=== PATIENT | male | born 1985 | race American Indian/Alaskan Native ===

== ENCOUNTER 2017-09-07 22:03 | Emergency (ER) | payer SELFPAY ==
[2017-09-07 22:12] VITALS: BP 120/79; PULSE 84; RESP 16; TEMP 98; O2SAT 100
--- NOTE | 2017-09-07 22:51 | C.PDOC ---
History Of Present Illness 32 yo male come in for evaluation of Left lower toothache developed since yesterday. As per pt, had left lower premolar tooth extraction yesterday and since then developed pain with chewing. Pt sts, " I known something is wrong after that procedure". Pt admits, went back to dentist and also was evaluated at [facility] " and was told nothing is wrong". Pt admits, takes antibiotic now given by dentist after the extraction. Otherwise, pt admits, able to eat and swallow without difficulty. Pt denies fever, chills, drooling, dysphagia, dysphea, trismus, wound discharge/bleeding, CP< SOB, cough or any other active complaints. Ambulate to Ed for evaluation, not in any apparent distress. Time Seen by Provider: 09/07/17 22:26 Chief Complaint (Nursing): Dental Pain History Per: Patient Past Medical History Reviewed: Historical Data, Nursing Documentation, Vital Signs Vital Signs: Last Vital Signs Temp 98 F 09/07/17 22:07 Pulse 84 09/07/17 22:07 Resp 16 09/07/17 22:07 BP 120/79 09/07/17 22:07 Pulse Ox 100 09/07/17 23:01 - Medical History PMH: Chronic Pain Other PMH: C-spine DJD, " fusion" Family History: States: No Known Family Hx - Social History Hx Alcohol Use: Yes Hx Substance Use: No - Immunization History Hx Tetanus Toxoid Vaccination: No Hx Influenza Vaccination: No Hx Pneumococcal Vaccination: No Review Of Systems Except As Marked, All Systems Reviewed And Found Negative. Constitutional: Negative for: Fever, Chills ENT: Positive for: Mouth Pain. Negative for: Ear Discharge, Nose Discharge, Throat Pain, Throat Swelling Cardiovascular: Negative for: Chest Pain Respiratory: Negative for: Cough, Shortness of Breath, Wheezing Neurological: Negative for: Weakness, Numbness, Altered Mental Status, Headache , Dizziness Physical Exam - Physical Exam Appears: Well, Non-toxic, No Acute Distress Skin: Normal Color, Warm, No Rash Head: Normacephalic Eye(s): bilateral: PERRL Ear(s): Bilateral: Normal Nose: No Flaring, No Discharge Oral Mucosa: Moist Tongue: Normal Appearing Lips: Normal Appearing Teeth: Tender To Palpation (Left lower 2nd premolar open tooth lacune closed with suture#1, mild edema, no erythema, no discahrges, no evidence of abscess.) Throat: No Erythema, No Exudate, No Drooling, Other (uvula midline, no edema.) Neck: Supple Respiratory: No Decreased Breath Sounds, No Accessory Muscle Use, No Rales, No Rhonchi, No Stridor, No Wheezing Extremity: Normal ROM, No Deformity, No Swelling Neurological/Psych: Oriented x3, Normal Speech ED Course And Treatment O2 Sat by Pulse Oximetry: 100 Pulse Ox Interpretation: Normal Progress Note: On re-eavluation, pt is afebrile, hemodynamicaly stable. Non- toxic. Tolerate Po well in ED. No drooling, trismus or dyspnea noted. PulsEOx 100% RA. Neck: Supple. ENT: exam c/w s/p left lower tooth extraction, no edema, no evidence of tooth abscess, no droolinr or trismus. Lungs: CTA B/L , BS equal B/L. Pt advised on course of ds. ref. to F/u with dentist in 2-3 days for re-eval. return to ED if any worsening or new changes. Disposition Counseled Patient/Family Regarding: Diagnosis, Need For Followup, Rx Given - Disposition Referrals: [facility] [Provider Group] [facility] [Provider Group] Disposition: HOME/ ROUTINE Disposition Time: 22:49 Condition: STABLE Additional Instructions: WARM SALTY WATER TOOTH BATHS 2-3 TIMES DAILY AVOID SOLID FOOD FOR 3-4 DAYS, LIQUID DIET FOR 1 WEEK DENTAL HYGIENE TAKE PAIN MEDICATION NEED CONTINUE ANTIBIOTIC PRESCRIBED BY DENTIST FOLLOW UP WITH DENTIST IN 2-3 DAYS FOR RE-EVALUATION AND INTRAORAL STITCHES REMOVAL RETURN TO ED IF ANY WORSENING OR NEW CHANGES. Prescriptions: traMADol [Ultram] 50 mg PO TID #7 tab Instructions: Toothache (ED) Forms: [facility] (Telugu) - Clinical Impression Clinical Impression: Toothache
== END 2017-09-07 23:00 | disposition home or self-care (01) ==
LOC: C.ER 22:03
DX: K08.89 Other specified disorders of teeth and supporting structures (principal)